=== PATIENT | male | born 1955 | race Caucasian/White ===

== ENCOUNTER → 2016-08-01 | Day surgery (SDC) | payer BC ==
[~2016-08-01] MED LIST: Buffered Lidocaine 1% SYR 3ML* 3 ML/SYR SYRINGE INTRADERM ONE; Buffered Lidocaine 1% SYR 3ML* 3 ML/SYR SYRINGE ONE; Bupivacaine 0.25% EPI 200,000* 30 ML SDV ONE; Labetalol IV* 5 MG/ML 20 ML VIAL ONE; Lidocain 1% EPI 1:100,000 * 30 ML MDV ONE; Lidocaine 2% MPF* 2 ML VIAL ONE; Methylene Blue 1%* 10 ML VIAL ONE; Midazolam* 1 MG/ML 5 ML VIAL (5 MG) ONE; Mineral Oil Sterile, TOPICAL* 25 ML BTL ONE; Propofol* 10 MG/ML 20 ML BTL IV PUSH ONE; ceFAZolin 2 GM PREMIX (*) 2 GM/50 ML BAG IVPB ONE; fentaNYL* 50 MCG/ML 2 ML VIAL (100 MCG VIAL) ONE
[2016-08-01 10:51] VITALS: BP 149/88
== END | disposition home or self-care (01) ==
LOC: OR 06:12
PROVIDERS: ATTEND Plastic Surgery
DX: C44.729 Squamous cell carcinoma of skin of left lower limb, including hip (principal); I10 Essential (primary) hypertension; E11.9 Type 2 diabetes mellitus without complications
CPT/HCPCS: 88305; 88329; A9270-GY; J0690; J2250; J2704; J3010

== ENCOUNTER 2019-06-11 08:12 | Emergency (ER) | payer BC ==
[2019-06-11 08:28] VITALS: BP 169/107
[2019-06-11] MEDS ORDERED: Phenylephrine 1% NASAL* 15 ML BOT RIGHT NARE ONE (08:37)
[2019-06-11] MEDS ORDERED: Lidocaine 2% VISCOUS* 15 ML UDC PO ONE (08:38)
--- NOTE | 2019-06-11 08:55 | UC ---
Epistaxis Nasal HPI - HPI Summary HPI Summary: The patient is a 64-year-old male that has had intermittent nosebleeds for the past 4 days. His had multiple bleeds per day and they all have resolved with 10 -15 minutes of pressure. He denies any URI symptoms. He denies any nasal trauma. He has never had to be seen by her nose or throat doctor concerning epistaxis. He is on no new meds. Today at work he developed the spontaneous onset of her right sided nosebleed. This one has been more brisk than the others and has not resolved with pressure. All of his nosebleeds have been on the right side. - History of Current Complaint Chief Complaint: UCGeneralIllness Stated Complaint: NOSE BLEED Time Seen by Provider: 06/11/19 08:32 Hx Obtained From: Patient Onset/Duration: Gradual Onset Timing: Intermittent Episode Lasting - 10-15 Severity Initially: Mild Severity Currently: Moderate Pain Intensity: 0 Pain Scale Used: 0-10 Numeric Character: Heavy - today Alleviating Factor(s): Pressure Associated Signs And Symptoms: Positive: Negative Related Hx: ASA - Allergies/Home Medications Allergies/Adverse Reactions: Allergies Allergy/AdvReac Type Severity Reaction Status Date / Time No Known Allergies Allergy Verified 06/11/19 08:32 PMH/Surg Hx/FS Hx/Imm Hx Previously Healthy: Yes Endocrine History: Diabetes Cardiovascular History: Hypertension - Surgical History Surgical History: Yes Surgery Procedure, Year, and Place: ELBOW SURG TO REMOVE [place]IPS 12[place] [facility] [place] [facility] [place] - Family History Known Family History: Positive: Hypertension, Diabetes - Social History Alcohol Use: Occasionally Alcohol Amount: 1 BEER/WEEK Substance Use Type: None Smoking Status (MU): Never Smoked Tobacco Have You Smoked in the Last Year: No Review of Systems All Other Systems Reviewed And Are Negative: Yes Constitutional: Positive: Negative Skin: Positive: Negative Eyes: Positive: Negative ENT: Positive: Epistaxis Respiratory: Positive: Negative Cardiovascular: Positive: Negative Gastrointestinal: Positive: Negative Genitourinary: Positive: Negative Neurovascular: Positive: Negative Musculoskeletal: Positive: Negative Neurological: Positive: Negative Psychological: Positive: Negative Physical Exam Triage Information Reviewed: Yes Appearance: Well-Appearing, No Pain Distress, Well-Nourished Vital Signs: Initial Vital Signs Temp 98.3 F 06/11/19 08:25 Pulse 73 11/20/19 08:25 Resp 16 06/11/19 08:25 BP 169/107 06/11/19 08:25 Pulse Ox 100 06/11/19 08:25 Vital Signs Reviewed: Yes Eyes: Positive: Conjunctiva Clear ENT: Positive: Hearing grossly normal, Nasal congestion, Nasal drainage, Uvula midline. Negative: Tonsillar swelling, Tonsillar exudate, Hoarse voice Dental Exam: Normal Neck: Positive: Supple, Nontender, No Lymphadenopathy Respiratory: Positive: Lungs clear, Normal breath sounds, No respiratory distress, No accessory muscle use Cardiovascular: Positive: RRR, No Murmur Musculoskeletal: Positive: ROM Intact, No Edema Neurological: Positive: Alert Psychological Exam: Normal Skin Exam: Normal Procedures - Procedure Summary Procedure Summary: procedure: NASAL PACKING procedure explained to patient cotton pledget soaked in viscous lidocaine and sprays of neosynephrine pressure x 15 minutes bleeding stopped unable to locate bleeding source nasal tampon inserted pt tolerated procedure well - Sedation Patient Received Moderate/Deep Sedation with Procedure: No Epistaxis Nasal Course/Dx - Differential Dx/Diagnosis Provider Diagnosis: Right-sided epistaxis Discharge ED - Sign-Out/Discharge Documenting (check all that apply): Patient Departure All imaging exams completed and their final reports reviewed: No Studies - Discharge Plan Condition: Stable Disposition: HOME Patient Education Materials: Nosebleed (ED) Referrals: Casper Huerta MD [Primary Care Provider] - (as planned) Fede Norman MD [Medical Doctor] - As Soon As Possible (call and explain that your right nostril was packed here today ) - Billing Disposition and Condition Condition: STABLE Disposition: Home
[2019-06-11] MEDS ORDERED: Silver Nitrate/Potassium Nitr* 1 EA STICK TOPICAL ONE (09:13)
[2019-06-11] MEDS ORDERED: Benzoin Compound STICK TOPICAL ONE (09:25)
== END 2019-06-11 09:52 | disposition home or self-care (01) ==
LOC: UCEAST 08:12
DX: R04.0 Epistaxis (principal); E11.9 Type 2 diabetes mellitus without complications; I10 Essential (primary) hypertension
CPT/HCPCS: 30901; 99211; A9270-GY; G0463

== ENCOUNTER 2019-06-13 04:53 | Emergency (ER) | payer BC ==
[2019-06-13] MEDS ORDERED: Tranexamic Acid 1,000 MG/10 ML SDV TOPICAL ONE (05:55)
[2019-06-13] MEDS ORDERED: Lidocaine 2% JELLY* 10 ML JELLY TOPICAL ONE (05:55)
--- NOTE | 2019-06-13 06:00 | ED ---
Throat Pain/Nasal Congestion - HPI Summary HPI Summary: 64-year-old male presents with repeat nosebleed today. He states that it was packed 2 days ago. He states it is follow-up with ENT at 9 today. He states that it has been intermittently bleeding for the past couple hours. He states been coming out the nostril that when it starts to bleed. He states it is minimally bleeding feels like at this time. He is not on a blood thinners. He takes aspirin daily but since the bleeding started he hasn't been taking it. No history of significant nosebleeds. He is not currently on antibiotics. - History of Current Complaint Chief Complaint: EDEpistaxis Time Seen by Provider: 06/13/19 05:35 - Allergies/Home Medications Allergies/Adverse Reactions: Allergies Allergy/AdvReac Type Severity Reaction Status Date / Time No Known Allergies Allergy Verified 06/13/19 04:58 PMH/Surg Hx/FS Hx/Imm Hx Endocrine/Hematology History: Reports: Hx Diabetes - TYPE 11 Cardiovascular History: Reports: Hx Hypertension - on merds History: Reports: Other Problems/Disorders - FREQUENCY, ENLARGED PROSTATE Sensory History: Reports: Hx Contacts or Glasses - CONTACTS, WILL WEAR GLASSES DOS Denies: Hx Hearing Aid Opthamlomology History: Reports: Hx Contacts or Glasses - CONTACTS, WILL WEAR GLASSES DOS - Cancer History Cancer Type, Location and Year: skin Hx Chemotherapy: No - Surgical History Surgery Procedure, Year, and Place[place] [facility] [place] [facility] [place] Anesthesia Reactions: No Infectious Disease History: No Infectious Disease History: Denies: Traveled Outside the [place] in Last 30 Days - Family History Known Family History: Positive: Hypertension, Diabetes - Social History Alcohol Use: Occasionally Alcohol Amount: 1x week Substance Use Type: Reports: None Smoking Status (MU): Never Smoked Tobacco Have You Smoked in the Last Year: No Review of Systems Negative: Fever Positive: Epistaxis Negative: Chest Pain Negative: Shortness Of Breath All Other Systems Reviewed And Are Negative: Yes Physical Exam Triage Information Reviewed: Yes Vital Signs On Initial Exam: Initial Vitals Temp Pulse Resp BP Pulse Ox 96.8 F 100 16 166/98 97 06/13/19 04:55 06/13/19 04:55 06/13/19 04:55 06/13/19 04:55 06/13/19 04:55 Vital Signs Reviewed: Yes Appearance: Positive: Well-Appearing Skin: Positive: Warm, Dry Head/Face: Positive: Normal Head/Face Inspection Eyes: Positive: Normal, Conjunctiva Clear ENT: Positive: Pharynx normal, Other - right nares Respiratory/Lung Sounds: Positive: Clear to Auscultation, Breath Sounds Present Cardiovascular: Positive: Normal, RRR Musculoskeletal: Positive: Normal Neurological: Positive: Normal Psychiatric: Positive: Normal Procedures - Sedation Patient Received Moderate/Deep Sedation with Procedure: No Diagnostics - Vital Signs Vital Signs Temp Pulse Resp BP Pulse Ox 06/13/19 04:55 96.8 F 100 16 166/98 97 - Laboratory Lab Statement: Any lab studies that have been ordered have been reviewed, and results considered in the medical decision making process. Re-Evaluation - Re-Evaluation First Eval Re-Evaluation Time: 06:42 Change: Improved Comment: no rebleeding Second Eval Re-Evaluation Time: 07:04 Comment: walked with no rebleed EENT Course/Dx - Course Course Of Treatment: 64-year-old male presents with repeat nosebleed today. He states that it was packed 2 days ago. He states it is follow-up with ENT at 9 today. He states that it has been intermittently bleeding for the past couple hours. He states been coming out the nostril that when it starts to bleed. He states it is minimally bleeding feels like at this time. He is not on a blood thinners. He takes aspirin daily but since the bleeding started he hasn't been taking it. No history of significant nosebleeds. He is not currently on antibiotics. On exam has nasal packing in place with what looks like new blood on the right nostril. Place txa on a merocel and place in nostril. no rebleeding. We'll have follow-up with ENT today. patient understand and agrees with plan. - Differential Diagnoses Differential Diagnoses: Epistaxis, URI/Bronchitis - Diagnoses Provider Diagnoses: Epistaxis Discharge ED - Sign-Out/Discharge Documenting (check all that apply): Patient Departure - Discharge Plan Condition: Good Disposition: HOME Patient Education Materials: Nosebleed (ED) Referrals: Casper Huerta MD [Primary Care Provider] - Fede Norman MD [Medical Doctor] - Additional Instructions: follow up with ENT as scheduled Return to ED if develop any new or worsening symptoms - Billing Disposition and Condition Condition: GOOD Disposition: Home
[2019-06-13] MEDS ORDERED: Lidocaine 2% JELLY* 6 ML JELLY TOPICAL ONE (07:00)
[2019-06-13 07:07] VITALS: BP 172/89
== END 2019-06-13 07:05 | disposition home or self-care (01) ==
LOC: ED 04:53
DX: R04.0 Epistaxis (principal); Z79.82 Long term (current) use of aspirin; E11.9 Type 2 diabetes mellitus without complications; I10 Essential (primary) hypertension
CPT/HCPCS: 99282; A9270-GY